=== PATIENT | female | born 1975 | race Asian ===

== ENCOUNTER → 2017-02-22 | Outpatient (CLI) | payer OTHER ==
--- NOTE | 2017-02-25 15:21 | RADIOLOGY REPORT PS360 ---
DIG MAMM-SCREEN ETHEL W/CAD CAD Screening COMPARISON: Digital mammograms 02/18/2016 INDICATION: There is a history of breast cancer patient's grandmother. TECHNIQUE: Standard CC and MLO images were obtained. R2 CAD reviewed. FINDINGS: There is a markedly and diffusely dense and heterogenic parenchymal pattern definitely lessening the sensitivity of mammography. The findings are bilateral and symmetrical. There is no new or suspicious lesion in either breast and there are no suspicious microcalcifications. IMPRESSION: Stable dense parenchymal pattern no suspicious lesion seen recommend yearly follow-up BI-RADS CATEGORY: 1_Negative RECOMMENDED FOLLOWUP: 12M 12 MONTH FOLLOW-UP (A letter has been sent to the patient regarding results of the study.)
== END ==
LOC: RAD 09:00
DX: Z12.31 Encounter for screening mammogram for malignant neoplasm of breast (principal)
CPT/HCPCS: G0202

== ENCOUNTER → 2017-03-29 | Outpatient (CLI) | payer OTHER ==
[2017-03-29 14:02] LABS: HEMOGLOBIN 12.4 g/dL (12.2-16.2); LYMPH # 2.4 K/mm3 (0.7-4.5); LYMPH % 37.9 % (10-50.0)
[2017-03-29 14:55] LABS: BUN 14 mg/dL (7-18)
[2017-03-29 14:56] LABS: GFR (ESTIMATED) 61 ML/MIN (59-)
== END ==
LOC: LAB 13:13
PROVIDERS: Internal Medicine Adolescent Medicine
DX: Z01.818 Encounter for other preprocedural examination (principal)

== ENCOUNTER → 2017-05-13 | Outpatient (CLI) | payer OTHER ==
[2017-05-13 10:45] LABS: HEMOGLOBIN 13.1 g/dL (12.2-16.2); LYMPH # 1.7 K/mm3 (0.7-4.5); LYMPH % 30.8 % (10-50.0)
[2017-05-13 13:12] LABS: BUN 9 mg/dL (7-18)
[2017-05-13 13:13] LABS: GFR (ESTIMATED) 92 ML/MIN (59-)
== END ==
LOC: LAB 10:25
PROVIDERS: Internal Medicine Adolescent Medicine
DX: Z01.810 Encounter for preprocedural cardiovascular examination (principal)